=== PATIENT | male | born 1985 | race Two or more races ===

== ENCOUNTER 2019-01-17 16:37 | Emergency (ER) | payer OTHER ==
[~2019-01-17] VITALS: Ht 172.7 cm; Wt 72.7 kg
[2019-01-17 16:38] VITALS: BP 146/73
[2019-01-17] MEDS ORDERED: BACITRACIN 0.9 GM PACKET OINTMENT TP ONE (19:30)
[2019-01-17] MEDS ORDERED: PERTUSS(ACELL),DIPH,TET VAC/PF 0.5 ML VIAL IM ONE (19:30)
== END 2019-01-17 20:49 | disposition home or self-care (01) ==
LOC: EMS 16:39
DX: S61.411A Laceration without foreign body of right hand, initial encounter (principal); Y04.2XXA Assault by strike against or bumped into by another person, initial encounter; Y93.89 Activity, other specified; Y92.89 Other specified places as the place of occurrence of the external cause; Y99.8 Other external cause status
CPT/HCPCS: 12002; 90471; 90715

== ENCOUNTER 2019-01-31 16:42 | Emergency (ER) | payer OTHER ==
[~2019-01-31] VITALS: Ht 170.2 cm; Wt 77.3 kg
[2019-01-31 17:28] VITALS: BP 118/74
== END 2019-01-31 17:33 | disposition home or self-care (01) ==
LOC: EMS 16:42
DX: S51.811D Laceration without foreign body of right forearm, subsequent encounter (principal); W45.8XXD Other foreign body or object entering through skin, subsequent encounter